=== PATIENT | female | born 1970 | race Caucasian/White ===

== ENCOUNTER 2017-06-29 13:57 | Emergency (ER) | payer OTHER ==
[~2017-06-29] VITALS: Wt 110.4 kg
[~2017-06-29 13:57] MED LIST: GABA300C16 PO; HYDR200T5 PO; LEVO100T87 PO; LOSA100T7 PO; MECL25TA2 PO; OMEP40CA6 PO; TRAM50TA2 PO
[2017-06-29] MEDS ORDERED: KETOROLAC 60 MG INJ IM STA (15:59)
[2017-06-29 16:27] LABS: ADD UMIC YES; UR ASCORBIC ACID NEGATIVE (NEGATIVE); UR BILIRUBIN (Dip) NEGATIVE (NEGATIVE); UR BLOOD (Dip) NEGATIVE (NEGATIVE); UR CLARITY CLEAR (CLEAR); UR COLOR YELLOW (YELLOW); UR GLUCOSE (Dip) NEGATIVE (NEGATIVE); UR KETONES (Dip) TRACE mg/dL (NEGATIVE); UR LEUKOCYTE ESTERASE (Dip) TRACE Leu/ul (NEGATIVE); UR MUCUS FEW /HPF (NONE SEEN); UR NITRITE (Dip) NEGATIVE (NEGATIVE); UR RBC 1 /HPF (0-5); UR SPECIFIC GRAVITY (Dip) 1.027 (1.003-1.030); UR SQUAMOUS EPITHELIAL CELL FEW /HPF (FEW); UR TOTAL PROTEIN (Dip) 1+ mg/dl (NEGATIVE); UR UROBILINOGEN (Dip) 1+ mg/dL (NEGATIVE)
--- NOTE | 2017-06-29 16:33 | RADRPT ---
PROCEDURE: Chest xray. CLINICAL INDICATION: Cough. TECHNIQUE: A portable upright PA view of the chest was obtained. COMPARISON: 07/11/2007 FINDINGS: The cardiomediastinal silhouette is within normal limits. The lungs are well expanded and show norm al vascularity. No focal opacity, pleural effusion, or pneumothorax is identified. The skeletal st ructures and soft tissues are unremarkable. IMPRESSION: No acute intrathoracic abnormality. RPTAT:HKMK .Jo Camilo MD, Date Time Electronically viewed and signed by .Jo Camilo MD, on 06/29/2017 16:33 .K/
[2017-06-29] MEDS ORDERED: ACET500C5 PO (17:16)
[2017-06-29] MEDS ORDERED: BENZ100C70 PO (17:16)
--- NOTE | 2017-06-29 17:29 | ERD ---
ER Documentation Chief Complaint Chief Complaint Throat pain,nasal congestion x 3 days HPI 46-year-old female patient with a past medical history of lupus, thyroid problems, fibromyalgia, hypertension presents to the ED complaining of right hand pain, cough, ear pain, throat pain that started intermittently for the past 4 days. Her cough is dry. Denies taking any foreign bodies in her ears. Denies any sick contacts. Denies any fever, chills, nausea, vomiting, diarrhea , chest pain, shortness of breath, wheezing. Reports that she takes levothyroxine,pPlaquenil, gabapentin, losartan. Denies any injuries or trauma to her right hand. Reports that it feels sore. Rates the pain a 6 out of 10. ROS All systems reviewed and are negative except as per history of present illness. Medications Home Meds Active Scripts Acetaminophen* (Tylophen*) 500 Mg Capsule, 1 CAP PO Q8H Y for PAIN AND OR ELEVATED TEMP, #20 CAP Prov:AMANDA CONTRERAS PA-C 06/29/17 Benzonatate* (Tessalon Perle*) 100 Mg Capsule, 100 MG PO Q8H Y for COUGH, #20 CAP Prov:AMANDA CONTRERAS PA-C 06/29/17 Meclizine Hcl* (Antivert*) 25 Mg Tablet, 25 MG PO Q6H Y for DIZZINESS, #20 TAB Prov:JACOBY ASCENCIO DO 03/31/16 Tramadol HCl (Tramadol HCl) 50 Mg Tablet, 50 MG PO Q6, #15 TAB Prov:JACOBY ASCENCIO DO 03/31/16 Reported Medications Omeprazole* (Omeprazole*) 40 Mg Capsule.dr, 40 MG PO DAILY, #30 CAP 03/31/16 Gabapentin* (Gabapentin*) 300 Mg Capsule, 300 MG PO NEEDED, #60 CAP 03/31/16 Levothyroxine Sodium* (Levothyroxine Sodium*) 100 Mcg Tablet, 100 MCG PO BEFORE BREAKFAST, #30 TAB 03/31/16 Hydroxychloroquine Sulfate* (Plaquenil*) 200 Mg Tab, 200 MG PO DAILY, TAB 03/31/16 Losartan Potassium* (Losartan Potassium*) 100 Mg Tablet, 100 MG PO DAILY, TAB 03/31/16 Allergies Allergies: Coded Allergies: No Known Allergy (Unverified , 06/29/17) PMhx/Soc History of Surgery: Yes (C-SECTIONX3) Anesthesia Reaction: No Hx Neurological Disorder: No Hx Respiratory Disorders: No Hx Cardiac Disorders: Yes (HTN) Hx Psychiatric Problems: No Hx Miscellaneous Medical Probl: Yes (LUPUS,HYPOTHYROIDISM,FIBROMYALGIA) Hx Alcohol Use: No Hx Substance Use: Yes (WEED) Hx Tobacco Use: Yes (1/2pack/day) Smoking Status: Current every day smoker Physical Exam Vitals Vital Signs Date Time Temp Pulse Resp B/P Pulse Ox O2 Delivery O2 Flow Rate FiO2 06/29/17 14:41 98.8 84 18 173/91 98 Physical Exam Const: [id number], well-nourished. In no acute distress. Head: Atraumatic, normocephalic Eyes: Normal Conjunctiva without injection. No purulent discharge. PERRL. EOMI ENT: Normal external ear. Ear canal without erythema. Tympanic membrane pearly mercado without effusion or bulging. Nasal canal clear with normal turbinates. Moist oropharynx without tonsillar exudates. Non-erythematous pharynx. Uvula midline. No drooling. No trismus. Neck: Full range of motion. No meningismus. No cervical lymphadenopathy. Resp: Clear to auscultation bilaterally. No wheezing, rhonchi, rales, or crackles. No accessory muscle use. No retractions. Cardio: Regular rate and rhythm. No murmurs, rubs or gallops. Abd: Soft, non tender, non distended. Normal bowel sounds. No palpable masses. No rebound tenderness. No guarding. Skin: No petechiae or rashes Back: No midline tenderness. No CVA tenderness. Ext: No cyanosis, or edema. Generalized tenderness to palpation of the right hand. No erythema or edema. No fluctuance or induration. No snuffbox tenderness. Neur: Awake and alert. Psych: Normal Mood and Affect Results 24 hrs Laboratory Tests Test 06/29/17 16:07 Urine Color YELLOW Urine Clarity CLEAR Urine pH 5.0 Urine Specific [place] 1.027 Urine Ketones TRACEmg/dL Urine Nitrite NEGATIVEmg/dL Urine Bilirubin NEGATIVEmg/dL Urine Urobilinogen 1+mg/dL Urine Leukocyte Esterase TRACELeu/ul Urine Microscopic RBC 1/HPF Urine Microscopic WBC 2/HPF Urine Squamous Epithelial Cells FEW/HPF Urine Mucus FEW/HPF Urine Hemoglobin NEGATIVEmg/dL Urine Glucose NEGATIVEmg/dL Urine Total Protein 1+mg/dl Current Medications Medications (Trade) Dose Ordered Sig/Loren Route PRN Reason Start Time Stop Time Status Last Admin Dose Admin Ketorolac Tromethamine (Toradol) 60 mg ONCE STAT IM 06/29/17 15:59 06/29/17 16:01 DC 06/29/17 16:12 Procedures/MDM This is a 46-year-old female patient with no significant past medical history presents to the ED complaining of dry cough, ear pain, sore throat that started intimately for the past 4-5 days. Patient is afebrile nontoxic appearing. Patient's blood pressure was noted to be 173/91. Patient's blood pressure was elevated (>120/80) but appears stable without evidence of hypertension emergency or urgency. The patient was counseled about the risks of hypertension and urged to pursue outpatient monitoring and therapy within a week with their primary care physician. A chest x-ray was ordered to further evaluate patient. PROCEDURE: Chest xray. CLINICAL INDICATION: Cough. TECHNIQUE: A portable upright PA view of the chest was obtained. COMPARISON: 07/11/2007 FINDINGS: The cardiomediastinal silhouette is within normal limits. The lungs are well expanded and show normal vascularity. No focal opacity, pleural effusion, or pneumothorax is identified. The skeletal structures and soft tissues are unremarkable. IMPRESSION: No acute intrathoracic abnormality. This patient presents to the ED with symptoms consistent with a viral acute upper respiratory infection. Patient is afebrile and has normal vital signs. Patient's physical exam include lungs which were clear to auscultation and a normal pulse oximetry. There is a low suspicion for pneumonia, pneumothorax, mononucleosis, pulmonary embolism, epiglottitis, otitis media, otitis externa, viral/strep pharyngitis, sinusitis, peritonsillar abscess, mastoiditis, retropharyngeal abscess, meningitis, sepsis, acute abdomen or other emergent conditions. Fluids, rest, and symptomatic treatment are recommended for the management of patient's symptoms. Patient is placed in a right hand splint. Splint Assessment: Neurovascularly intact pre and post splint placement with good fit. Differentials include lupus causing patient to have right hand joint pain. Patient should follow up with stogy maker for further evaluation, treatment and management. No erythema or edema. Patient has full range of motion of the DIP, PIP, MCP joints bilaterally. No trauma. Patient's extremity symptoms have stabilized while they have been evaluated in the department and are appropriate for outpatient follow up. No evidence of fractures, dislocations, compartment syndrome, neurologic injury, vascular injury, open joint, open fracture, tendon laceration, septic arthritis, osteomyelitis, DVT, foreign body , or other emergent conditions. Discharge medications: Tylenol, Tessalon Perles Patient was instructed to return to the ED for any new or worsening symptoms. They should otherwise follow up with the primary care provider within 1-2 days as her stogy maker. The patient's questions were answered at the time of discharge. Patient understood and agreed with discharge management. Departure Diagnosis: Primary Impression: Sore throat Additional Impressions: Cough Hand pain Laterality: right Qualified Code: M79.641 - Pain of right hand Condition: Stable Patient Instructions: Lupus, Sprain Hand, Uri, Viral, No Abx (Adult) Referrals: [facility] YOU HAVE RECEIVED A MEDICAL SCREENING EXAM AND THE RESULTS INDICATE THAT YOU DO NOT HAVE A CONDITION THAT REQUIRES URGENT TREATMENT IN THE EMERGENCY DEPARTMENT. FURTHER EVALUATION AND TREATMENT OF YOUR CONDITION CAN WAIT UNTIL YOU ARE SEEN IN YOUR DOCTORS OFFICE WITHIN THE NEXT 1-2 DAYS. IT IS YOUR RESPONSIBILITY TO MAKE AN APPOINTMENT FOR FOLOW-UP CARE. IF YOU HAVE A PRIMARY DOCTOR --you should call your primary doctor and schedule an appointment IF YOU DO NOT HAVE A PRIMARY DOCTOR YOU CAN CALL OUR PHYSICIAN REFERRAL HOTLINE AT IF YOU CAN NOT AFFORD TO SEE A PHYSICIAN YOU CAN CHOSE FROM THE FOLLOWING [facility] [address] [facility]. [facility] [address] [facility]. [facility] [address] [facility]. [facility] [address] [facility]. [facility] [address] [facility]. [facility]. [address] [facility] YOU HAVE RECEIVED A MEDICAL SCREENING EXAM AND THE RESULTS INDICATE THAT YOU DO NOT HAVE A CONDITION THAT REQUIRES URGENT TREATMENT IN THE EMERGENCY DEPARTMENT. FURTHER EVALUATION AND TREATMENT OF YOUR CONDITION CAN WAIT UNTIL YOU ARE SEEN IN YOUR DOCTORS OFFICE WITHIN THE NEXT 1-2 DAYS. IT IS YOUR RESPONSIBILITY TO MAKE AN APPOINTMENT FOR FOLOW-UP CARE. IF YOU HAVE A PRIMARY DOCTOR --you should call your primary doctor and schedule and appointment IF YOU DO NOT HAVE A PRIMARY DOCTOR YOU CAN CALL OUR PHYSICIAN REFERRAL HOTLINE AT . IF YOU CAN NOT AFFORD TO SEE A PHYSICIAN YOU CAN CHOSE FROM THE FOLLOWING [facility] INSTITUTIONS: [facility] [address] [place] [address] [facility] [address] [place] [address] [facility] [address] [place] [address] [facility]CIAL[facility] Additional Instructions: FOLLOW UP WITH YOUR stogy maker and primary care physician in 2 days for further evaluation and treatment.Return to this facility if you are not improving as expected - fever, chills, nausea, vomiting, diarrhea, loss of sensation, loss of range of motion. AMANDA CONTRERAS PA-C Jun 29, 2017 17:29
== END 2017-06-29 17:24 | disposition home or self-care (01) ==
LOC: FTE 13:57
DX: J02.9 Acute pharyngitis, unspecified (principal); R05 Cough; M79.641 Pain in right hand; I10 Essential (primary) hypertension; E03.9 Hypothyroidism, unspecified; F17.210 Nicotine dependence, cigarettes, uncomplicated
CPT/HCPCS: 29125; 71010; 81001; J1885; 96372

== ENCOUNTER 2017-08-25 14:19 | Emergency (ER) | END 2017-08-25 17:00 | disposition home or self-care (01) ==

== ENCOUNTER 2017-09-14 17:47 | Emergency (ER) | END 2017-09-14 21:09 | disposition left against medical advice (07) ==

== ENCOUNTER 2017-11-03 17:46 | Emergency (ER) | END 2017-11-04 02:24 | disposition left against medical advice (07) ==

== ENCOUNTER 2017-11-06 11:20 | Inpatient (IN) | END 2017-11-06 18:50 | disposition home health service (06) | DRG 66 ==

== ENCOUNTER 2018-10-29 05:16 | Emergency (ER) | payer MEDICAID, OTHER ==
[~2018-10-29] VITALS: Ht 172.7 cm; Wt 118.9 kg
[~2018-10-29 05:16] MED LIST changes: +ACET500C5 PO; +ASPI-831 PO; +ATOR40TA68 PO; +HYDR-4011 PO; +LEVO100T8 PO; -LEVO100T87 PO; +LOSA100T15 PO; -LOSA100T7 PO
[2018-10-29 05:18] VITALS: BP 154/80; PULSE 93; RESP 18; Ht 172.7 cm; Wt 118.9 kg
[2018-10-29] MEDS ORDERED: ONDANSETRON (ODT) 4 MG TAB ODT STA (06:14)
[2018-10-29] MEDS ORDERED: FLUT9.9S NASAL (06:25)
[2018-10-29] MEDS ORDERED: NAPR-985 PO (06:25)
[2018-10-29] MEDS ORDERED: PSEU-79 PO (06:25)
[2018-10-29] MEDS ORDERED: HYDR-4011 PO (06:25)
[2018-10-29] MEDS ORDERED: CYCL10TA7 PO (06:25)
[2018-10-29] MEDS ORDERED: ATORVASTATIN 40 MG TAB PO ONE (06:30)
[2018-10-29] MEDS ORDERED: DEXAMETHASONE 10 MG/ML 1 ML INJ IM ONE (06:30)
[2018-10-29] MEDS ORDERED: HYDROCODONE/APAP (5/325) TAB PO ONE (06:30)
--- NOTE | 2018-10-29 06:31 | ERD ---
ER Documentation Chief Complaint Chief Complaint LOWER BACK PAIN AND CONGESTION X 4 DAYS HPI 47-year-old female presenting with lower back pain and sciatica pain radiating down her right leg. She is she has had a long history of sciatica pain but today it is exacerbated. She denies any recent falls or traumatic injuries. Denies any weakness. Has not taken medications for her symptoms. Denies any changes in urination or bowel movement. Medical history is a stroke 1 year ago, lupus and hypertension. Patient is also complaining of nasal congestion and a dry cough. No fevers. Has not taken medications for her symptoms. Patient has had changes to her insurance and she has been unable to take her chronic cholesterol medication patient is requesting medication in the ER as she has not taken this medication for 6 days. ROS All systems reviewed and are negative except as per history of present illness. Medications Home Meds Active Scripts Fluticasone Propionate (Flonase Allergy Relief) 9.9 Ml [employer].susp, 1 SPRAY NASAL DAILY, #1 BOTTLE TO EACH NOSTRIL Prov:JOSHUA JIANG PA-C 10/29/18 Pseudoephedrine Hcl* (Suphedrin*) 30 Mg Tablet, 30 MG PO Q6 PRN for CONGESTION, #30 TAB Prov:JOSHUA JIANG PA-C 10/29/18 Naproxen* (Naprosyn*) 500 Mg Tablet, 500 MG PO BID PRN for PAIN AND/OR INFLAMMATION, #30 TAB Prov:JOSHUA JIANG PA-C 10/29/18 Cyclobenzaprine Hcl* (Cyclobenzaprine Hcl*) 10 Mg Tablet, 10 MG PO TID, #15 TAB Prov:JOSHUA JIANG PA-C 10/29/18 Hydrocodone/Acetaminophen (Dietrich 5-325 Tablet) 1 Each Tablet, 1 TAB PO Q6H PRN for PAIN, #7 TAB Prov:JOSHUA JIANG PA-C 10/29/18 Atorvastatin* (Atorvastatin*) 40 Mg Tablet, 40 MG PO HS for 60 Days, #60 TAB 4 Refills Prov:AILIN STONER MD 11/06/17 Aspirin (Aspirin) 81 Mg Chew, 81 MG PO DAILY for 30 Days, #30 TAB 5 Refills Prov:AILIN STONER MD 11/06/17 Hydrocodone/Acetaminophen (Dietrich 5-325 Tablet) 1 Each Tablet, 1 TAB PO Q6H PRN for PAIN, #7 TAB Prov:JERO HOPPER PA-C 08/25/17 Acetaminophen* (Tylophen*) 500 Mg Capsule, 1 CAP PO Q8H PRN for PAIN AND OR ELEVATED TEMP, #20 CAP Prov:AMANDA CONTRERAS PA-C 06/29/17 Meclizine Hcl* (Antivert*) 25 Mg Tablet, 25 MG PO Q6H PRN for DIZZINESS, #20 TAB Prov:JACOBY ASCENCIO DO 03/31/16 Tramadol HCl (Tramadol HCl) 50 Mg Tablet, 50 MG PO Q6, #15 TAB Prov:JACOBY ASCENCIO DO 03/31/16 Reported Medications Omeprazole* (Omeprazole*) 40 Mg Capsule.dr, 40 MG PO DAILY, #30 CAP 03/31/16 Gabapentin* (Gabapentin*) 300 Mg Capsule, 300 MG PO NEEDED, #60 CAP 03/31/16 Levothyroxine Sodium* (Levothyroxine Sodium*) 100 Mcg Tablet, 100 MCG PO BEFORE BREAKFAST, #30 TAB 03/31/16 Hydroxychloroquine Sulfate* (Plaquenil*) 200 Mg Tab, 200 MG PO DAILY, TAB 03/31/16 Losartan Potassium* (Losartan Potassium*) 100 Mg Tablet, 100 MG PO DAILY, TAB 03/31/16 Allergies Allergies: Coded Allergies: No Known Allergy (Unverified , 06/29/17) PMhx/Soc History of Surgery: Yes (c section x 3) Anesthesia Reaction: No Hx Neurological Disorder: No Hx Respiratory Disorders: No Hx Cardiac Disorders: No Hx Psychiatric Problems: No Hx Miscellaneous Medical Probl: Yes (See EMR for detail. ) Hx Alcohol Use: No Hx Substance Use: Yes Hx Tobacco Use: Yes Smoking Status: Current every day smoker FmHx Family History: No diabetes, No coronary disease, No other Physical Exam Vitals Vital Signs Date Temp Pulse Resp B/P (MAP) Pulse Ox O2 O2 Flow FiO2 Time Delivery Rate 10/29/18 97.0 93 18 154/80 96 05:18 (104) Physical Exam GENERAL: The patient is well-appearing, well-nourished, in no acute distress HEENT: Atraumatic. Conjunctivae are pink. Pupils equal, round, and reactive to light. There is no scleral icterus. Tympanic membranes clear bilaterally. Oropharynx clear. Congestion noted to the sinuses bilaterally. No sinus pressure or tenderness on palpation CHEST: Clear to auscultation bilaterally. There are no rales, wheezes or rhonchi. HEART: Regular rate and rhythm. No murmurs, clicks, rubs or gallops. BACK: No midline or flank tenderness. Tender to palpation over the right paraspinous muscles extending down the right buttock. EXTREMITIES: Equal pulses bilaterally. There is no peripheral clubbing, c yanosis or edema. No focal swelling or erythema. Full range of motion. Grossly neurovascularly intact. NEUROLOGIC: Alert and oriented. Cranial nerves II through XII intact. Motor strength in all 4 extremities with 5 out of 5 strength. Sensation grossly intact. Normal speech and gait. Results 24 hrs Current Medications Medications Dose Sig/Loren Start Time Status Last (Trade) Ordered Route PRN Stop Time Admin Dose Reason Admin 1 tab ONCE ONCE 10/29/18 Acetaminophen PO 06:30 / 10/29/18 06:31 Hydrocodone Bitart (Dietrich (5/325)) Ondansetron 4 mg ONCE STAT 10/29/18 DC HCl (Zofran ODT 06:14 Odt) 10/29/18 06:16 10 mg ONCE ONCE 10/29/18 Dexamethasone IM 06:30 (Decadron) 10/29/18 06:31 40 mg ONCE ONCE 10/29/18 Atorvastatin PO 06:30 Calcium 10/29/18 06:31 (Lipitor) Procedures/MDM ER course: Dietrich and Decadron given ED. MDM: 47-year-old female presenting with back pain. Patient has findings consistent with sciatica and I do not feel there is indication for imaging or blood work. I have low suspicion for acute abdominal emergency radiating to the back. I have low suspicion for discitis, epidural abscess or cauda equina. Patient will be discharged with supportive medications. Patient is also given medication for viral sinusitis. Patient is told if symptoms change or worsen to return immediately to the ER. All questions answered at discharge Departure Diagnosis: Primary Impression: Back pain Condition: Stable Patient Instructions: Back Pain (Acute Or Chronic), Sinusitis, No Abx Referrals: [facility] YOU HAVE RECEIVED A MEDICAL SCREENING EXAM AND THE RESULTS INDICATE THAT YOU DO NOT HAVE A CONDITION THAT REQUIRES URGENT TREATMENT IN THE EMERGENCY DEPARTMENT. FURTHER EVALUATION AND TREATMENT OF YOUR CONDITION CAN WAIT UNTIL YOU ARE SEEN IN YOUR DOCTORS OFFICE WITHIN THE NEXT 1-2 DAYS. IT IS YOUR RESPONSIBILITY TO MAKE AN APPOINTMENT FOR FOLOW-UP CARE. IF YOU HAVE A PRIMARY DOCTOR --you should call your primary doctor and schedule an appointment IF YOU DO NOT HAVE A PRIMARY DOCTOR YOU CAN CALL OUR PHYSICIAN REFERRAL HOTLINE AT IF YOU CAN NOT AFFORD TO SEE A PHYSICIAN YOU CAN CHOSE FROM THE FOLLOWING [facility] [address] [facility] [address] [facility]. [facility] [address] [facility] [address] [facility] [address] [facility]. [facility] [address] Additional Instructions: FOLLOW UP WITH YOUR PRIMARY CARE PHYSICIAN TOMORROW.Return to this facility if you are not improving as expected. JOSHUA JIANG PA-C Oct 29, 2018 06:31
[2018-10-29] MEDS ORDERED: AMLODIPINE 5 MG TAB PO ONE (07:00)
== END 2018-10-29 07:06 | disposition home or self-care (01) ==
LOC: FTE 05:16
DX: M54.5 Low back pain (principal); I10 Essential (primary) hypertension; F17.210 Nicotine dependence, cigarettes, uncomplicated
CPT/HCPCS: 96372; J1100; Z7502; Z7610

== ENCOUNTER 2019-03-13 08:32 | Emergency (ER) | payer OTHER ==
[~2019-03-13] VITALS: Ht 172.7 cm; Wt 117.4 kg
[~2019-03-13 08:32] MED LIST changes: +CYCL10TA7 PO; +FLUT9.9S NASAL; +IBUP800T48 PO; +NAPR-985 PO; +PSEU-79 PO
[2019-03-13 08:45] VITALS: BP 124/74; PULSE 84; RESP 17; Ht 172.7 cm; Wt 117.4 kg
[2019-03-13] MEDS ORDERED: KETOROLAC 30 MG INJ IM STA (09:13)
--- NOTE | 2019-03-13 09:19 | ERD ---
ER Documentation Chief Complaint Chief Complaint SWELLING ON LOWER EXT X2 DAYS HPI Patient is a 48 years old female with past medical history of hypothyroidism, stroke, hypertension, lupus presenting to the ED for bilateral lower extremity swelling X 2 days. Patient reports swelling came out of the blue which worsened with activity and improve with rest. Patient reports of right lower extremity swelling is worse than the left side. Patient reports right lower extremity is painful compared to the left side. She admits that she is able to ambulate however with difficulty. She denies fever, chills, night sweats, cough, shor tness of breath, difficulty breathing. ROS All systems reviewed and are negative except as per history of present illness. Medications Home Meds Active Scripts Fluticasone Propionate (Flonase Allergy Relief) 9.9 Ml [place].susp, 1 SPRAY NASAL DAILY, #1 BOTTLE TO EACH NOSTRIL Prov:JOSHUA JIANG PA-C 10/29/18 Pseudoephedrine Hcl* (Suphedrin*) 30 Mg Tablet, 30 MG PO Q6 PRN for CONGESTION, #30 TAB Prov:JOSHUA JIANG PA-C 10/29/18 Naproxen* (Naprosyn*) 500 Mg Tablet, 500 MG PO BID PRN for PAIN AND/OR INFLAMMATION, #30 TAB Prov:JOSHUA JIANG PA-C 10/29/18 Cyclobenzaprine Hcl* (Cyclobenzaprine Hcl*) 10 Mg Tablet, 10 MG PO TID, #15 TAB Prov:JOSHUA JIANG PA-C 10/29/18 Hydrocodone/Acetaminophen ([place] 5-325 Tablet) 1 Each Tablet, 1 TAB PO Q6H PRN for PAIN, #7 TAB Prov:JOSHUA JIANG PA-C 10/29/18 Atorvastatin* (Atorvastatin*) 40 Mg Tablet, 40 MG PO HS for 60 Days, #60 TAB 4 Refills Prov:AILIN STONER MD 11/06/17 Aspirin (Aspirin) 81 Mg Chew, 81 MG PO DAILY for 30 Days, #30 TAB 5 Refills Prov:AILIN STONER MD 11/06/17 Hydrocodone/Acetaminophen ([place] 5-325 Tablet) 1 Each Tablet, 1 TAB PO Q6H PRN for PAIN, #7 TAB Prov:JERO HOPPER PA-C 08/25/17 Acetaminophen* (Tylophen*) 500 Mg Capsule, 1 CAP PO Q8H PRN for PAIN AND OR ELEVATED TEMP, #20 CAP Prov:AMANDA CONTRERAS PA-C 06/29/17 Meclizine Hcl* (Antivert*) 25 Mg Tablet, 25 MG PO Q6H PRN for DIZZINESS, #20 TAB Prov:JACOBY ASCENCIO DO 03/31/16 Tramadol HCl (Tramadol HCl) 50 Mg Tablet, 50 MG PO Q6, #15 TAB Prov:BLAKEEddieJACOBY DO 03/31/16 Reported Medications Omeprazole* (Omeprazole*) 40 Mg Capsule.dr, 40 MG PO DAILY, #30 CAP 03/31/16 Gabapentin* (Gabapentin*) 300 Mg Capsule, 300 MG PO NEEDED, #60 CAP 03/31/16 Levothyroxine Sodium* (Levothyroxine Sodium*) 100 Mcg Tablet, 100 MCG PO BEFORE BREAKFAST, #30 TAB 03/31/16 Hydroxychloroquine Sulfate* (Plaquenil*) 200 Mg Tab, 200 MG PO DAILY, TAB 03/31/16 Losartan Potassium* (Losartan Potassium*) 100 Mg Tablet, 100 MG PO DAILY, TAB 03/31/16 Allergies Allergies: Coded Allergies: No Known Allergy (Unverified , 10/29/18) PMhx/Soc History of Surgery: Yes (C SECTION) Anesthesia Reaction: No Hx Neurological Disorder: No Hx Respiratory Disorders: No Hx Cardiac Disorders: Yes (HTN) Hx Psychiatric Problems: No Hx Miscellaneous Medical Probl: Yes (THYROID DIS,LUPUS,KIDNEY DIS) Hx Alcohol Use: No Hx Substance Use: Yes (MARIJUANA) Hx Tobacco Use: Yes Smoking Status: Current every day smoker FmHx Family History: No diabetes, No coronary disease, No other Physical Exam Vitals Vital Signs Date Temp Pulse Resp B/P (MAP) Pulse Ox O2 O2 Flow FiO2 Time Delivery Rate 03/13/19 97.8 84 17 124/74 98 08:45 (91) Physical Exam Const: No acute distress Head: Atraumatic Resp: Clear to auscultation bilaterally Cardio: Regular rate and rhythm, no murmurs Ext: 3+ right lower extremity swelling, 1+ left lower extremity swelling. Right lower extremity mildly erythematous with mild tenderness to palpation. No induration, laceration, gross trauma. Neurovascular exam intact. Skin intact. Bilateral lower extremity compartment soft. Psych: Normal Mood and Affect Result Diagram: 03/13/1994303/13/19943 Results 24 hrs Laboratory Tests Test 03/13/19 09:31 03/13/19 09:44 POC Beta HCG, Qualitative NEGATIVE White Blood Count 4.7 10^3/ul Red Blood Count 4.51 10^6/ul Hemoglobin 13.3 g/dl Hematocrit 41.1 % Mean Corpuscular Volume 91.1 fl Mean Corpuscular Hemoglobin 29.5 pg Mean Corpuscular Hemoglobin Concent 32.4 g/dl Red Cell Distribution Width 12.7 % Platelet Count 202 10^3/UL Mean Platelet Volume 9.4 fl Immature Granulocytes % 0.200 % Neutrophils % 52.3 % Lymphocytes % 34.2 % Monocytes % 9.1 % Eosinophils % 3.4 % Basophils % 0.8 % Nucleated Red Blood Cells % 0.0 /100WBC Immature Granulocytes # 0.010 10^3/ul Neutrophils # 2.5 10^3/ul Lymphocytes # 1.6 10^3/ul Monocytes # 0.4 10^3/ul Eosinophils # 0.2 10^3/ul Basophils # 0.0 10^3/ul Nucleated Red Blood Cells # 0.0 10^3/ul Urine Color JADE Urine Clarity SLIGHTLY CLOUDY Urine pH 5.0 Urine Specific [place] 1.028 Urine Ketones NEGATIVE mg/dL Urine Nitrite NEGATIVE mg/dL Urine Bilirubin NEGATIVE mg/dL Urine Urobilinogen 1+ mg/dL Urine Leukocyte Esterase NEGATIVE Emiliana/ul Urine Microscopic RBC 3 /HPF Urine Microscopic WBC 15 /HPF Urine Squamous Epithelial Cells MODERATE /HPF Urine Bacteria FEW /HPF Urine Mucus MANY /HPF Urine Hemoglobin NEGATIVE mg/dL Urine Glucose NEGATIVE mg/dL Urine Total Protein 1+ mg/dl Sodium Level 140 mmol/L Potassium Level 4.0 mmol/L Chloride Level 105 mmol/L Carbon Dioxide Level 31 mmol/L Anion Gap 4 Blood Urea Nitrogen 18 mg/dl Creatinine 1.04 mg/dl Est Glomerular Filtrat Rate mL/min 56 mL/min Glucose Level 94 mg/dl Calcium Level 9.4 mg/dl Total Bilirubin 0.4 mg/dl Direct Bilirubin 0.00 mg/dl Indirect Bilirubin 0.4 mg/dl Aspartate Amino Transf (AST/SGOT) 21 IU/L Alanine Aminotransferase (ALT/SGPT) 21 IU/L Alkaline Phosphatase 93 IU/L Total Protein 7.4 g/dl Albumin 4.1 g/dl Globulin 3.30 g/dl Albumin/Globulin Ratio 1.24 Current Medications Medications Dose Sig/Loren Start Time Status Last (Trade) Ordered Route PRN Stop Time Admin Dose Reason Admin Ketorolac 30 mg ONCE STAT 03/13/19 DC 03/13/19 Tromethamine IM 09:13 03/13/19 09:37 (Toradol) 09:17 Procedures/MDM Patient was seen and evaluated for bilateral lower extremity swelling. CBC, CMP, urinalysis are grossly unremarkable. Bilateral lower extremity venous ultrasound is unremarkable. Toradol administered in ED with improvement of symptoms. Low suspicion for DVT, cellulitis, compartment syndrome, fracture, injury. Patient patient is most likely experiencing bilateral extremity swelling from possible cardiogenic causes (CHF) versus renal. Patient was advised to follow- up with PCP and have cardiology evaluation. Patient stable and ready for discharge. Follow-up with PCP. Patient will be discharged with ibuprofen. Patient was advised about leg elevation. Departure Diagnosis: Primary Impression: Swelling Condition: Stable Patient Instructions: Peripheral Edema, Bilateral Referrals: [facility] Additional Instructions: Patient advised to return to the ED immediately for new or worsening symptoms. Patient advised to follow up with primary care provider in the next 24-48 hours. Patient verbalized understanding and agrees with treatment plan and course of action. If patient has no primary care they may follow up with [facility] [address] [place] [address] or [facility] [address] [place] [address] or [facility] [address] [place] [address] DILLAN GRANADO PA-C Mar 13, 2019 09:19
== END 2019-03-13 12:24 | disposition home or self-care (01) ==
LOC: FTE 08:32
DX: M79.89 Other specified soft tissue disorders (principal); E03.9 Hypothyroidism, unspecified; F17.210 Nicotine dependence, cigarettes, uncomplicated; I10 Essential (primary) hypertension; Z79.82 Long term (current) use of aspirin
CPT/HCPCS: 80053; 81001; 81025; 85025; 93970; 96372; J1885; Z7502